=== PATIENT | female | born 1950 | race Caucasian/White ===

== ENCOUNTER → 2017-07-22 | Outpatient (CLI) | payer OTHER ==
[~2017-07-22] MED LIST: BUPRENORPHINE HC8 MG SUBLING; CYMBALTA60 MG PO; FOSAMAX 70 MG T70 MG PO; HYDROCHLOROTHIA25 M2 PO; IBU600 MG PO; KLOR-CON 1010 MEQ PO; LIPITOR10 MG PO; LISINOPRIL10 MG PO; METFORMIN HCL500 MG PO; MOBIC7.5 MG PO; NEURONTIN 300300 M1 PO; OXYCODON-ACETA1 EAC1 PO; PRAVACHOL40 MG PO; PROZAC10 MG PO; TOPICAL ANALGESIC; VITAMIN D3400 UNIT PO
== END ==
LOC: M.CT 10:39
DX: Z13.6 Encounter for screening for cardiovascular disorders (principal); E78.5 Hyperlipidemia, unspecified

== ENCOUNTER → 2017-07-24 | Outpatient (CLI) | payer MEDICARE | LOC: M.RAD 10:30 | DX: Z12.31 Encounter for screening mammogram for malignant neoplasm of breast (principal) ==

== ENCOUNTER → 2017-07-29 | Outpatient (CLI) | payer MEDICARE ==
--- NOTE | 2017-07-30 06:52 | PAINCON ---
[address] [address] PAIN MANAGEMENT CONSULTATION Name: POLO HURST Room: [facility] Flores#: [id number] Admission: 07/29/17 Attend Phys: Emery Santa Discharge: Date of : 46 Report #: [id number] THIS REPORT FOR: //name// CC: Sofia Ramirez DATE OF SERVICE: 07/29/2017 The patient is a 67-year-old female, prior seen 1 time on 05/12/2015. Prior she had been treated by Dr. Keven Candelaria. When I saw the patient at that time assessment was symptomatic cervical radiculopathy by history, status post lumbar decompressive laminectomy, degenerative joint disease affecting bilateral shoulders, the patient with osteopenia. She was continuing gabapentin 300 mg 1 in the morning and 2 at night, meloxicam 7.5 b.i.d., Percocet p.r.n., Cymbalta, all prescribed by Dr. Elizabeth. We recommended proceeding with cervical epidural injections if radicular symptoms became problematic. Noted concern for copious use of steroids in a patient who is osteoporotic. No further intervention was indicated and the patient was lost to followup. She returns to pain clinic today. We had a prolonged visit, approximately 30 minutes was spent with the patient. She tells me she has been continued on Percocet 7.5/325 four a day, gabapentin as noted 300 mg 1 in the morning, 2 at night, Meloxicam 7.5 b.i.d., tizanidine for spasm. She tells me that Dr. Elizabeth has elected to stop providing her Percocet 7.5/325 prescription. 30 mg of oxycodone is roughly equivalent to 45 mg of morphine daily. Nonetheless, with this moderately high load of narcotic (she tells me she has been on this since 1992), she still has significant subjective pain, rating her pain as 7-8 on a VAS. She reports hyperpathia and allodynia, stating she has pain "all over." States she feels like she has been bruised all over. She is very nonspecific on specific pain generators. States her neck hurts, her arms and hands occasionally go numb and her low back "throbs." PHYSICAL EXAMINATION: However, is fairly unremarkable. VITAL SIGNS: 4 feet 11 inches, 154 pound female, BMI is 31.2 kg per meter squared. Blood pressure is a little bit elevated 137/105, pulse 64, respirations are 18. NEUROLOGIC: Cranial nerves 2-12 are grossly intact. Cervical range of motion is adequate. Upper extremity strength is symmetric. Deep tendon reflexes are preserved. Hand grasp is symmetric. HEART: Regular rhythmical without murmur. LUNGS: Clear. ABDOMEN: She has a modestly endomorphic build. MUSCULOSKELETAL: Rises from chair using armrest. Gait is tandem. Lower extremity strength is preserved. Lumbar flexion is good to about 80 degrees. Straight leg raise is negative. Does have diffuse hyperpathia and allodynia with light touch, pain noted with even resistance testing [place] [address] PAIN MANAGEMENT CONSULTATION Name: POLO HURST [id number] Admission: 07/29/17 Attend Phys: Emery Santa Discharge: Date of : 46 Report #: [id number] DIAGNOSTIC STUDIES: Somewhat dated, MRI from 2012 notes diffuse lumbar spondylosis with severe stenosis at L3-L4, disk bulging at T12-L1. These findings do not correlate with specific radicular or myelopathic symptoms at this time. ASSESSMENT: Myofascial pain in a patient with history of cervical radiculopathy status post decompressive lumbar laminectomy, chronic pain affecting neck, shoulders with what appears to be opiate-induced hyperalgesia versus myofascial pain (fibromyalgia). RECOMMENDATION: I pointed out that the Center for Disease Control has specific recommendations regarding fibromyalgia, they suggest that we eschew any opiate analgesics as they tend to promote opiate tolerance, opiate-induced hyperalgesia and no measurable improvement in baseline function. I reviewed all this with the patient at length today. I told her that if I were to manage her I would rotate to a different narcotic and commence weaning. With her daily equivalent of 45 mg of morphine if we stop abruptly she would likely have opiate withdrawal. We have elected to rotate to buprenorphine 8 mg sublingual for 2 weeks. I gave her a second prescription to be released in 2 weeks for buprenorphine 8 mg, but have directed the patient to take one-half tablet sublingual daily for 3 weeks. We will follow up in 5 weeks for reevaluation. Discharged in good stable condition after approximately 30 minutes spent reviewing interval history and discussing therapeutic options with the patient. <ELECTRONICALLY SIGNED> By: Fer Ramirez DO 07/30/17 0652 [id number] Ramirez DO /nt
== END ==
LOC: M.PC 02:39
DX: M54.12 Radiculopathy, cervical region (principal); G89.29 Other chronic pain; M79.7 Fibromyalgia

== ENCOUNTER → 2017-08-12 | Outpatient (CLI) | payer MEDICARE | LOC: M.RAD 08-04 13:30 | DX: M85.89 Other specified disorders of bone density and structure, multiple sites (principal); M54.9 Dorsalgia, unspecified; Z78.0 Asymptomatic menopausal state ==

== ENCOUNTER → 2017-08-26 | Outpatient (CLI) | payer MEDICARE ==
--- NOTE | 2017-08-31 06:53 | PAINCON ---
[address] [address] PAIN MANAGEMENT CONSULTATION Name: POLO HURST Room: [facility] Flores#: [id number] Admission: 08/26/17 Attend Phys: Emery Santa Discharge: Date of : 46 Report #: [id number] THIS REPORT FOR: //name// CC: Sofia Ramirez DATE OF SERVICE: 08/26/2017 HISTORY OF PRESENT ILLNESS: The patient is a 67-year-old female, prior seen in the pain clinic on 07/29/2017, being treated for cervical radiculopathy, history of lumbar radiculopathy status post decompressive laminectomy, myofascial pain component, requiring complex medication management. The patient has been continuing on gabapentin 300 mg 1 in the morning, 2 at night. We rotated from Percocet 7.5/325 four a day, roughly equivalent to 45 mg of morphine in the patient noting chief complaint of right hip pain. The patient had prior been treated in the pain clinic back in 2015, lost to followup. She returns to the pain clinic on 07/29/2017. Again, primary component of pain was a fibromyalgia type pain (myofascial pain), history of cervical radiculopathy and prior lumbar decompressive laminectomy. She appeared to be exhibiting opiate-induced hyperalgesia with "all over" pain. I discussed with the patient at last visit that Center for Disease Control specifically contraindicated opiate analgesics for myofascial pain. Given that she had been taking roughly equivalent of 45 mg of morphine a day for quite some time, we elected to rotate to buprenorphine with gradual wean. We rotated to Suboxone 8/2 sublingual for 1 week with a second prescription to be released in 2 weeks to drop down to 1/2 buprenorphine tablet. The patient returns to the pain clinic today noting that the Suboxone prompted nausea and vomiting, hence discontinued it. She is taking simply ibuprofen 600-800 mg t.i.d. She presents to the pain clinic today noting pain is primarily in the right low back. She notes that it is hip and on physical exam, the pain is actually over the SI joint. She has a positive RAMESH test. Passive rotation of the hip is unremarkable. Lower extremity strength is preserved. Straight leg raise is negative. Skin integument is intact. PHYSICAL EXAMINATION: Further shows a 4 feet 11 inches, 143 pounds female, BMI is 29 kilograms per meter squared. Blood pressure 128/87, pulse 67, respirations 16. Subjective pain score rates anywhere from 3 to 8 on a VAS. It is at 7/10 today. ASSESSMENT: Myofascial pain, component of sacroiliac mediated pain. RECOMMENDATION: 1. We will provide a prescription for ibuprofen 600 mg t.i.d. Discontinue lwyg-vte-holziik anti-inflammatories. 2. Right SI joint injection [place] [address] PAIN MANAGEMENT CONSULTATION Name: POLO HURST Room: [facility] Sandra#: [id number] Admission: 08/26/17 Attend Phys: Emery Santa Discharge: Date of : 46 Report #: [id number] 3. Core exercise, strengthening exercises reviewed. Followup simply as needed. PROCEDURE: Right SI joint injection under fluoroscopy. PROCEDURE NOTE: After written and informed consent was obtained, the patient was taken to the fluoroscopy suite and placed in prone position. After sterile prep and drape, skin wheal was raised. A 22-gauge stylet needle was placed to contact the inferior aspect of the right SI joint. Negative aspiration was accomplished. A 40 mg triamcinolone plus 1 mL of 0.5% preservative-free bupivacaine was injected into the joint. Needle was removed, the area was cleansed, Band-Aids applied. The patient monitored for an appropriate period of time, discharged in good and stable condition, noting incremental improvement of baseline pain. <ELECTRONICALLY SIGNED> By: Fer Ramirez DO 08/31/17 0653 [id number] Ramirez DO /jake
== END | disposition home or self-care (01) ==
LOC: M.PC 01:43
DX: M53.3 Sacrococcygeal disorders, not elsewhere classified (principal); M79.1 Myalgia; Z79.891 Long term (current) use of opiate analgesic; Z98.890 Other specified postprocedural states; Z88.2 Allergy status to sulfonamides; Z88.8 Allergy status to other drugs, medicaments and biological substances; Z79.899 Other long term (current) drug therapy

== ENCOUNTER 2017-11-08 17:56 | Emergency (ER) | payer MEDICARE ==
[~2017-11-08] VITALS: Ht 149.9 cm; Wt 68.5 kg
[~2017-11-08 17:56] MED LIST changes: -PROZAC10 MG PO
[2017-11-08] MEDS ORDERED: PROZAC10 MG PO (18:08)
[2017-11-08 18:30] LABS: HEMATOCRIT 41.1 % (37.0-47.0); HEMOGLOBIN 13.5 gm/dL (12.0-15.0); MCH 30.3 pg (26.0-34.0); MCHC 32.8 g/dL (28.0-37.0); MCV 92.4 fL (80.0-100.0); RBC 4.45 mil/uL (4.20-5.00); RDW-CV 15.5 % (10.5-14.5); WBC 5.5 thou/uL (4.0-11.0)
[2017-11-08 18:36] LABS: CREATININE 0.7 mg/dL (0.6-1.3); POTASSIUM 3.7 mmol/L (3.5-5.1)
[2017-11-08 18:46] LABS: TOTAL BILIRUBIN 0.2 mg/dL (<0.1-1.0); TOTAL PROTEIN 7.1 g/dL (6.4-8.2)
[2017-11-08 18:51] LABS: ACETAMINOPHEN < 2 ug/mL (10-30); ALCOHOL 121 mg/dL (<10); SALICYLATE 11.4 mg/dL (2.8-20.0)
[2017-11-08 22:45] VITALS: BP 186/108
== END 2017-11-08 22:45 | disposition home or self-care (01) ==
LOC: M.ERS 17:56
PROVIDERS: Personal Emergency Response Attendant
DX: R45.851 Suicidal ideations (principal); F32.9 Major depressive disorder, single episode, unspecified; Z88.2 Allergy status to sulfonamides; Z88.6 Allergy status to analgesic agent; Z88.5 Allergy status to narcotic agent

== ENCOUNTER 2018-04-24 03:21 | Inpatient (IN) | payer OTHER ==
[~2018-04-24] VITALS: Ht 149.9 cm; Wt 66.7 kg
[2018-04-24] VITALS (10 sets, daily range): BP systolic 74–158; BP diastolic 47–124
[~2018-04-24 03:21] MED LIST changes: -LIPITOR10 MG PO; +PROZAC10 MG PO
[2018-04-24] MEDS ORDERED: BACTRIM DS TAB1 EACH PO (03:33)
[2018-04-24] MEDS ORDERED: LISINOPRIL10 MG PO (03:33)
[2018-04-24] MEDS ORDERED: MOBIC7.5 MG PO (03:34)
[2018-04-24] MEDS ORDERED: ZANAFLEX2 MG PO (03:34)
[2018-04-24] MEDS ORDERED: NEURONTIN250 MG/5 M PO (03:35)
[2018-04-24] MEDS ORDERED: CYMBALTA20 MG PO (03:35)
[2018-04-24 03:50] LABS: ABSOLUTE BASOPHILS 0.1 thou/uL (0.0-0.2); ABSOLUTE EOSINOPHILS 0.2 thou/uL (0.0-0.7); ABSOLUTE LYMPHOCYTES 2.7 thou/uL (0.8-5.3); ABSOLUTE MONOCYTES 0.9 thou/uL (0.0-1.2); ABSOLUTE NEUTROPHILS 5.4 thou/uL (1.6-8.1); BASOPHILS 1.4 %; EOSINOPHILS 2.6 %; HEMATOCRIT 36.3 % (37.0-47.0); HEMOGLOBIN 11.9 gm/dL (12.0-15.0); LYMPHOCYTES 28.5 %; MCH 30.3 pg (26.0-34.0); MCHC 32.9 g/dL (28.0-37.0); MCV 92.1 fL (80.0-100.0); MONOCYTES 9.8 %; MPV 8.5 fl. (7.2-11.1); NUCLEATED RBCS 0 /100WBC; PLATELET COUNT* 361 thou/uL (150-400); POLYS 57.7 %; RBC 3.94 mil/uL (4.20-5.00); WBC 9.4 thou/uL (4.0-11.0)
[2018-04-24 04:02] LABS: ANION GAP 10 mmol/L (7-16); BUN 25 mg/dL (7-18); CALCIUM 8.1 mg/dL (8.5-10.1); CHLORIDE 108 mmol/L (98-107); CO2 24 mmol/L (21-32); CREATININE 1.4 mg/dL (0.6-1.3); GLUCOSE 126 mg/dL (70-99); POTASSIUM 3.6 mmol/L (3.5-5.1); SODIUM 142 mmol/L (136-145)
[2018-04-24 04:03] LABS: PROTIME 10.1 Seconds (9.20-11.50)
[2018-04-24 04:13] LABS: ALBUMIN 2.6 g/dL (3.4-5.0); ALKALINE PHOSPHATASE 70 U/L (46-116); NT-PRO BRAIN NAT PEPTIDE 73 pg/mL (<300); SGOT 17 U/L (15-37); SGPT 10 U/L (30-65); TOTAL BILIRUBIN 0.1 mg/dL (<0.1-1.0); TOTAL PROTEIN 6.3 g/dL (6.4-8.2); TROPONIN-I LEVEL <0.06 ng/mL (<0.06)
[2018-04-24 04:54] LABS: BE -6.1 mmol/L (-2 to +3); HCO3 19.4 mmol/L (22.0-26.0); PCO2 38.6 mmHg (35.0-45.0); PO2 98.9 mmHg (75.0-100.0)
[2018-04-24 05:06] LABS: URINE BILIRUBIN NEGATIVE (Negative); URINE BLOOD NEGATIVE (Negative); URINE CLARITY CLEAR; URINE COLOR YELLOW; URINE GLUCOSE-RANDOM NEGATIVE (Negative); URINE KETONES NEGATIVE (Negative); URINE LEUKOCYTES-REFLEX NEGATIVE (Negative); URINE NITRITE-REFLEX NEGATIVE (Negative); URINE PROTEIN NEGATIVE (Negative); URINE UROBILINOGEN 0.2 E.U./dl (0.2-1.0)
[2018-04-24 05:13] LABS: AMP/METHAMP Negative (Negative); BARBITURATES Negative (Negative); BENZODIAZEPINES Negative (Negative); COCAINE Negative (Negative); METHADONE Negative (Negative); OPIATES Negative (Negative); PCP Negative (Negative); THC Negative (Negative)
[2018-04-24] MEDS ORDERED: LIPITOR 20 MG T20 M1 PO (07:40)
--- NOTE | 2018-04-24 11:56 | EKG ---
[place] [address] ELECTROCARDIOGRAM REPORT Name: POLO HURST Room: [address] ADM IN .R.#: [id number] Admission: 04/24/18 Attend Phys: Arleth May MD Discharge: Date of : 46 Report #: [id number] THIS REPORT FOR: //name// [facility] ED Test Date: 2018-04-24 Test Time: 03:27:33 Pat Name: POLO HURST Department: Room: [address] Gender: F Heading Pinner: Isra : 1950 Requested By: Tata De La Torre Order Number: [id number] Mer MD: Riky Ace Measurements Intervals [place] Rate: 42 P: 7 FL: 178 QRS: -3 QRSD: 106 T: 15 QT: 563 QTc: 471 Interpretive Statements Sinus bradycardia Atrial premature complexes Baseline wander in lead(s) V3 No previous ECG available for comparison Electronically Signed On 04-24-2018 11:56:02 [employer] by Riky Ace [email or web address] <ELECTRONICALLY SIGNED> By: Riky Ace MD, [facility] 04/24/18 1156 [phone] Riky Ace MD, FAC /EPI
--- NOTE | 2018-04-24 11:57 | EKG ---
[place] [address] ELECTROCARDIOGRAM REPORT Name: POLO HURST Room: [address] ADM IN ..#: [id number] Admission: 04/24/18 Attend Phys: Arleth May MD Discharge: Date of : 46 Report #: [id number] THIS REPORT FOR: //name// [facility] ED Test Date: 2018-04-24 Test Time: 05:48:53 Pat Name: POLO HURST Department: Room: [facility] Gender: F Benefit Director: TREY : 1950 Requested By: Tata De La Torre Order Number: [id number] MD: Riky Ace Measurements Intervals [place] Rate: 61 P: 10 DE: 194 QRS: -11 QRSD: 110 T: 15 QT: 491 QTc: 495 Interpretive Statements Sinus rhythm Nonspecific T abnormalities, inferior leads Borderline prolonged QT interval Baseline wander in lead(s) V6 Electronically Signed On 04-24-2018 11:57:02 [employer]NALY[employer] by Riky Ace [email or web address] <ELECTRONICALLY SIGNED> By: Riky Ace MD, [facility] 04/24/18 1157 0548 0548 Riky Ace MD, [facility] /EPI
[2018-04-25] VITALS (15 sets, daily range): BP systolic 129–197; BP diastolic 70–107
[2018-04-25 05:19] LABS: HEMOGLOBIN 11.9 gm/dL (12.0-15.0); MCH 30.7 pg (26.0-34.0); MCV 93.3 fL (80.0-100.0); RBC 3.85 mil/uL (4.20-5.00); RDW-CV 15.1 % (10.5-14.5); WBC 6.7 thou/uL (4.0-11.0)
[2018-04-25 05:50] LABS: ALBUMIN 2.5 g/dL (3.4-5.0); CALCIUM 8.3 mg/dL (8.5-10.1); CREATININE 0.8 mg/dL (0.6-1.3); MAGNESIUM 1.7 mg/dL (1.8-2.4); POTASSIUM 3.7 mmol/L (3.5-5.1); TOTAL BILIRUBIN 0.3 mg/dL (<0.1-1.0); TOTAL PROTEIN 6.3 g/dL (6.4-8.2)
[2018-04-26] VITALS (18 sets, daily range): BP systolic 139–193; BP diastolic 85–105
[2018-04-26] MEDS ORDERED: NEURONTIN250 MG/5 M PO (08:21)
[2018-04-26] MEDS ORDERED: MUCINEX600 MG PO (08:21)
[2018-04-26] MEDS ORDERED: PRINIVIL5 MG PO (08:21)
[2018-04-26] MEDS ORDERED: TRAMADOL 50 MG50 MG PO (08:21)
[2018-04-26] MEDS ORDERED: CYMBALTA30 MG PO (08:21)
[2018-04-26] MEDS ORDERED: PROZAC10 MG PO (08:21)
[2018-04-26] MEDS ORDERED: CEFUROXIME500 MG PO (08:21)
[2018-04-26] MEDS ORDERED: FLONASE 0.05%50 MCG NASAL (08:21)
[2018-04-26] MEDS ORDERED: NORVASC2.5 MG PO (08:22)
--- NOTE | 2018-04-26 15:11 | 2DMMODE ---
[place] [address] 2 D/M-MODE ECHOCARDIOGRAM Name: POLO HURST Room: [address] IN .R.#: [id number] Admission: 04/24/18 Attend Phys: Arleth May, Discharge: Date of : 46 Date of Service: 04/26/18 1511 Report #: [id number] THIS REPORT FOR: //name// APPROVED REPORT Study performed: 04/26/2018 09:31:46 EXAM: Comprehensive 2D, Doppler, and color-flow Echocardiogram BSA: 1.62 HR: 70 bpm BP: 170/98 mmHg Other Information Study Quality: Fair Indications Abnormal ECG 2D Dimensions IVSd: 13.32 (7-11mm) LVOT Diam: 20.33 (18-24mm) LVDd: 41.07 mm PWd: 10.29 (7-11mm) Ascending Ao: 35.39 (22-36mm) LVDs: 31.24 (25-40mm) Aortic Root: 27.25 mm Volumes Left Atrial Volume (Systole) LA ESV Index: 25.60 mL/m2 Aortic Valve AoV Peak Alvino.: 1.25 m/s AO Peak Gr.: 6.22 mmHg LVOT Max P.57 mmHg AO Mean Gr.: 3.35 mmHg LVOT Mean P.85 mmHg LVOT Max V: 0.63 m/s AO V2 VTI: 24.54 cm LVOT Mean V: 0.43 m/s DEREJE (VTI): 1.77 cm2 LVOT V1 VTI: 13.38 cm Mitral Valve E/A Ratio: 1.16 MV Decel. Time: 196.83 ms MV E Max Alvino.: 0.90 m/s MV PHT: 57.08 ms MVA (PHT): 3.85 [place] [address] 2 D/M-MODE ECHOCARDIOGRAM Name: POLO HURST Room: [address] IN ..#: [id number] Admission: 04/24/18 Attend Phys: Arleth May, Discharge: Date of : 46 Date of Service: 04/26/18 1511 Report #: [id number] TDI E/Lateral E': 12.86 E/Medial E': 18.00 Medial E' Alvino.: 0.05 m/s Lateral E' Alvino.: 0.07 m/s Pulmonary Valve PV Peak Alvino.: 0.73 m/s PV Peak Gr.: 2.15 mmHg Tricuspid Valve RAP Estimate: 5.00 mmHg TR Peak Gr.: 6.14 mmHg RVSP: 11.14 mmHg PA Pressure: 11.14 mmHg Left Ventricle The left ventricle is normal size. There is normal LV segmental wall motion. There is normal left ventricular wall thickness. Left ventricular systolic function is normal. The left ventricular ejection fraction is within the normal range. LVEF is 55-60%. Right Ventricle The right ventricle is normal size. The right ventricular systolic function is normal. Atria The left atrium size is normal. The right atrium size is normal. Aortic Valve Mild aortic valve sclerosis. Trace aortic regurgitation. There is no aortic valvular stenosis. Mitral Valve The mitral valve is normal in structure. There is no mitral valve regurgitation noted. No evidence of mitral valve stenosis. Tricuspid Valve The tricuspid valve is normal in structure. Trace tricuspid regurgitation. Pulmonic Valve The pulmonary valve is normal in structure. There is no pulmonic valvular regurgitation. Great Vessels The aortic root is normal in size. IVC is normal in size and collapses >50% [place] [address] 2 D/M-MODE ECHOCARDIOGRAM Name: ARISPOLO Torrie Room: [address] [facility]#: [id number] Admission: 04/24/18 Attend Phys: Arleth May, Discharge: Date of : 46 Date of Service: 04/26/18 1511 Report #: [id number] Pericardium There is no pericardial effusion. <Conclusion> The left ventricle is normal size. Left ventricular systolic function is normal. The left ventricular ejection fraction is within the normal range. LVEF is 55-60%. The right ventricle is normal size. The left atrium size is normal. Mild aortic valve sclerosis. Trace aortic regurgitation. There is no aortic valvular stenosis. The mitral valve is normal in structure. The tricuspid valve is normal in structure. IVC is normal in size and collapses >50% with inspiration. There is no pericardial effusion. There is normal LV segmental wall motion. <ELECTRONICALLY SIGNED> By: Modesto Sandy MD, FACC 04/26/18 [phone] Modesto Sandy MD, FACC /INF
[2018-04-26] MEDS ORDERED: LIPITOR10 MG PO (16:07)
--- NOTE | 2018-04-26 16:44 | CON ---
[address] [address] CONSULTATION Name: POLO HURST Room: [address] IN ..#: [id number] Admission: 04/24/18 Attend Phys: Arleth May MD Discharge: Date of : 46 Report #: [id number] THIS REPORT FOR: //name// CC: rAleth Elizabeth DO DATE OF SERVICE: 04/24/2018 HISTORY OF PRESENT ILLNESS: The patient is a 67-year-old white female who I was asked to see in the hospital after she had a syncopal spell. The history is obtained from the patient as well as her son who is present. The patient has a long history of chronic pain. She frequently went to the pain clinic here at [facility] for chronic back pain. However, she has not been hospitalized recently. She has a long history of hypertension. She stays fairly active at home. She denies a history of chest pain, although she does get short of breath with exertion. She did note occasional skipped heartbeat. She states she went to see Dr. Elizabeth couple of months ago and her blood pressure is elevated. Her lisinopril was doubled. She has had some confusion recently. Recently, she has felt lightheaded. Last night, the patient got up out of bed, felt lightheaded. According to family members, she slid to the ground and had a brief loss of consciousness. There is no seizure activity. When paramedics arrived, they were unable to obtain a blood pressure. She was given IV fluids and her blood pressures in the 90s. She was transferred to [facility] by ambulance and admitted. On arrival here, her blood pressure was in the 70s. She was started on Levophed. Cardiology consultation was requested. She denied any recent vomiting, diarrhea, bleeding. She denied any difficulty taking her medications. She denied any noncompliance. She has had no recent fever. She does have occasional headaches. She has occasional sweating spells. PAST MEDICAL HISTORY: She has had previous appendectomy, hernia repair, back surgery, eye surgery, tonsillectomy, hypertension, hyperlipidemia. MEDICATIONS: On admission consisted of lisinopril, Neurontin, Prozac, Mobic, Lipitor. ALLERGIES: She has intolerance to SULFA DRUGS and CODEINE. FAMILY HISTORY: Negative for heart disease. SOCIAL HISTORY: She is . She and her live here in [place]. The patient notes she is under a lot of stress since her is an alcoholic. The son also lives at home. She quit smoking years ago. No alcohol abuse. REVIEW OF SYSTEMS: She has had no history of stroke, asthma, [place] [address] CONSULTATION Name: POLO HURST Room: [address] IN [facility]#: [id number] Admission: 04/24/18 Attend Phys: Arleth May MD Discharge: Date of : 46 Report #: [id number] disease, liver disease, kidney disease or cancer. She has been anemic in the past. She does wear glasses. No psychiatric illness. PHYSICAL EXAMINATION: GENERAL: Revealed an elderly female lying in bed. She appeared in no acute distress. CURRENT VITAL SIGNS: Off of Levophed reveal a blood pressure of 130/70, pulse is 70. She is afebrile. HEENT: She is anicteric. Conjunctivae pink. Mucous members moist. NECK: Veins nondistended. No carotid bruits. Neck supple. CHEST: Clear to auscultation. CARDIOVASCULAR: Regular rate and rhythm. ABDOMEN: Soft. EXTREMITIES: Had no edema. Dorsalis pedis pulse 1+ bilaterally. SKIN: Warm and dry. NEUROLOGIC: Nonfocal. LYMPH: No adenopathy. MUSCULOSKELETAL: No joint effusion. RADIOLOGICAL DATA: Her ECG showed a sinus rhythm with no significant ST or T-wave change. On the monitor last night, she has remained in sinus rhythm. LAB WORK: Sodium 146, potassium 3.6, creatinine 1.4, glucose 126, calcium is only 8.1, albumin 2.6. Liver function studies were normal. Troponin 0.06. BNP 73. White blood cell count 9.4, hematocrit 36.3. Urinalysis negative for protein, negative for leukocytes. IMPRESSION AND RECOMMENDATIONS: 1. Syncope. Suspect secondary to hypotension. I would hold lisinopril at this time. 2. History of hypertension. I would consider switching her blood pressure medications. 3. Chronic back pain. 4. Hyperlipidemia. The patient is on a statin drug. <ELECTRONICALLY SIGNED> By: Riky Ace MD, [facility] 04/26/18 1644 1109 99Riky Ace MD, FAC /nt
== END 2018-04-26 18:15 | disposition home or self-care (01) | DRG 314 ==
LOC: M.ERS 03:21 → M.TBA-ER 05:36 → M.ICU 05:36
PROVIDERS: Emergency Medicine; ADMIT Internal Medicine
PROC: 02HV33Z Insertion of Infusion Device into Superior Vena Cava, Percutaneous Approach (ICD-10-PCS; principal; 2018-04-24)
DX: I95.9 Hypotension, unspecified (principal); G92 Toxic encephalopathy; R00.1 Bradycardia, unspecified; I10 Essential (primary) hypertension; E78.5 Hyperlipidemia, unspecified; G89.29 Other chronic pain; E86.0 Dehydration; M54.9 Dorsalgia, unspecified; J32.9 Chronic sinusitis, unspecified; Z88.5 Allergy status to narcotic agent; Z88.1 Allergy status to other antibiotic agents; Z88.6 Allergy status to analgesic agent; Z88.8 Allergy status to other drugs, medicaments and biological substances; Z90.49 Acquired absence of other specified parts of digestive tract; Z88.2 Allergy status to sulfonamides; Z79.899 Other long term (current) drug therapy